=== PATIENT | male | born 1990 | race Caucasian/White ===

== ENCOUNTER 2017-08-26 22:38 | Emergency (ER) | payer SELFPAY ==
[~2017-08-26] VITALS: Ht 175.3 cm; Wt 95.5 kg
[~2017-08-26 22:38] MED LIST: ALBU17AE27 IH
[2017-08-26] MEDS ORDERED: ALBUTEROL SULFATE 2.5 MG/0.5 ML NEB SOLUTION NEB ONE (23:15)
[2017-08-26] MEDS ORDERED: IPRATROPIUM BROMIDE 0.5 MG/2.5 ML NEB SOLUTION NEB ONE (23:15)
[2017-08-27 00:03] VITALS: BP 123/65
== END 2017-08-27 00:06 | disposition home or self-care (01) ==
LOC: EMS 22:40
DX: J45.909 Unspecified asthma, uncomplicated (principal); F41.9 Anxiety disorder, unspecified
CPT/HCPCS: 94640; 99283; J7613